=== PATIENT | male | born 1960 | race Caucasian/White ===

== ENCOUNTER 2021-07-21 01:25 | Emergency (ER) | payer OTHER ==
[~2021-07-21] VITALS: Ht 170.2 cm; Wt 95.3 kg
[2021-07-21 01:27] VITALS: BP 169/109
[2021-07-21 02:22] LABS: Basophils # (auto) 0.1 10 ^3/uL (0-0.2); Basophils % (auto) 0.5 % (0.0-2.0); Eosinophils # (auto) 0.1 10 ^3/uL (0-0.8); Eosinophils % (auto) 0.6 % (0.0-7.0); Hematocrit 47.1 % (41.0-53.0); Hemoglobin 16.7 g/dL (13.5-17.5); Lymphocytes # (auto) 1.3 10 ^3/uL (0.4-5.4); Lymphocytes % (auto) 8.5 % (10.0-50.0); Mean Corpuscular Hemoglobin 29.5 pg (28.0-32.0); Mean Corpuscular Hgb Conc. 35.5 g/dL (32.0-36.0); Mean Corpuscular Volume 83.1 fL (80.0-100.0); Monocytes # (auto) 0.8 10 ^3/uL (0-1.3); Monocytes % (auto) 5.2 % (0.0-12.0); Neutrophils # (auto) 13.2 10 ^3/uL (1.6-8.6); Neutrophils % (auto) 85.2 % (37.0-80.0); Nucleated Red Blood Cells % 0.9 %; Red Blood Cells 5.67 10^6/uL (4.5-5.90); Red Cell Distribution Width 13.7 % (11.8-14.3); White Blood Cell 15.5 10^3/uL (4.4-10.8)
[2021-07-21 02:37] LABS: Albumin 3.7 g/dL (3.4-5.0); Calcium 7.7 mg/dL (8.5-10.1); Potassium 3.9 mmol/L (3.5-5.1)
[2021-07-21 02:38] LABS: Bilirubin, Total 1.1 mg/dL (0.2-1.0)
== END 2021-07-21 03:51 | disposition left against medical advice (07) ==
LOC: ER 01:28
DX: K85.90 Acute pancreatitis without necrosis or infection, unspecified (principal); Z53.29 Procedure and treatment not carried out because of patient's decision for other reasons
CPT/HCPCS: 36415; 80053; 83690; 85025